=== PATIENT | female | born 1930 | race Two or more races ===

== ENCOUNTER 2022-07-15 02:58 | Emergency (ER) | payer MEDICARE, MEDICAID ==
[~2022-07-15] VITALS: Ht 162.6 cm; Wt 59.9 kg
[2022-07-15] MEDS ORDERED: OXYCODONE/APAP 5-325 MG TABLET PO ONE (03:30)
[2022-07-15] MEDS ORDERED: OXYCODONE/APAP 5-325 MG TABLET ONE (03:40)
--- NOTE | 2022-07-15 03:40 | NUR ---
Percocet 5/325 was given to this patient for pain. I forget to note.
[2022-07-15 04:23] LABS: *BILIRUBIN,URIN NEGATIVE (NEGATIVE); *BLOOD, URINE NEGATIVE (NEGATIVE); *CLARITY,URINE CLEAR (CLEAR); *COLOR,URINE YELLOW (YELLOW); *KETONES,URINE NEGATIVE (NEGATIVE); *UROBILINOGEN,URINE 0.2 E.U./dl (NORMAL); LEUKOCYTE ESTERASE ,URINE NEGATIVE (NEGATIVE); NITRITE, URINE NEGATIVE (NEGATIVE); PH,URINE 5.5 (5.0-8.0); UGLUCOSE NEGATIVE (NEGATIVE)
[2022-07-15] MEDS ORDERED: OXYC-128 PO (04:26)
[2022-07-15] MEDS ORDERED: BISA-79 PO (04:26)
[2022-07-15 06:13] VITALS: BP 136/75
== END 2022-07-15 05:30 | disposition home or self-care (01) ==
LOC: ER 03:07
DX: S22.089A Unspecified fracture of T11-T12 vertebra, initial encounter for closed fracture (principal); W01.0XXA Fall on same level from slipping, tripping and stumbling without subsequent striking against object, initial encounter; Y93.E8 Activity, other personal hygiene; Y92.031 Bathroom in apartment as the place of occurrence of the external cause; G20 Parkinson's disease; M62.562 Muscle wasting and atrophy, not elsewhere classified, left lower leg; I10 Essential (primary) hypertension; Z88.0 Allergy status to penicillin
CPT/HCPCS: 72072; 72100; A4663